=== PATIENT | male | born 1980 | race Caucasian/White ===

== ENCOUNTER 2016-12-14 21:59 | Emergency (ER) | payer OTHER ==
[2016-12-14 22:03] VITALS: BP 120/75
--- NOTE | 2016-12-14 23:37 | PHYS DOC ---
Past Medical History Past Medical History: No Pertinent History Past Surgical History: No Surgical History Alcohol Use: Rarely Drug Use: None Adult General Chief Complaint Chief Complaint: LOWER EXT PAIN HPI HPI Patient is a 36 year old male who presents with pain on top of the left thigh that began today. Patient states he was playing baseball, he states he hit the ball on started running and immediately felt like he had a muscle pull on his left thigh. Patient denies falling or any other injuries. Review of Systems Review of Systems Constitutional: Denies fever or chills [] Eyes: Denies change in visual acuity, redness, or eye pain [] : Denies dysuria or hematuria [] Musculoskeletal: Pain on top of the left thigh. Integument: Denies rash or skin lesions [] Neurologic: Denies headache, focal weakness or sensory changes [] Endocrine: Denies polyuria or polydipsia [] Current Medications Current Medications Current Medications Medications (Trade) Dose Ordered Sig/Cooper Start Time Stop Time Status Last Admin Dose Admin Naproxen (Naprosyn) 500 mg 1X STAT 12/14/16 23:37 12/14/16 23:38 UNV Prednisone (Prednisone) 60 mg 1X ONCE 12/14/16 23:45 12/14/16 23:46 UNV Allergies Allergies Allergies Coded Allergies Type Severity Reaction Last Updated Verified No Known Drug Allergies 03/24/14 No Physical Exam Physical Exam Constitutional: Well developed, well nourished, no acute distress, non-toxic appearance. [] Skin: Warm, dry, no erythema, no rash. [] Back: No tenderness, no CVA tenderness. [] Extremities: Left lower extremity with no obvious deformity. No ecchymosis. Tenderness on palpation of the left rectus femoris muscle. Full range of motion to the left lower extremity. Adequate flexion and extension of the left lower extremity. Adequate internal rotation and external rotation of the left lower extremity. +2 left pedal pulse. Cap refill less than 2 seconds the left lower extremity. Neurologic: Alert and oriented X 3, normal motor function, normal sensory function, no focal deficits noted. [] Psychologic: Affect normal, judgement normal, mood normal. [] Current Patient Data Vital Signs Vital Signs Date Time Temp Pulse Resp B/P Pulse Ox O2 Delivery O2 Flow Rate FiO2 12/14/16 22:03 98.2 88 18 98 Room Air 98.2 EKG EKG [] Radiology/Procedures Radiology/Procedures [] Course & Med Decision Making Course & Med Decision Making Pertinent Labs and Imaging studies reviewed. (See chart for details) Patient is in the ED with left femoris rectus muscle strain. Gavin wrap was provided to patient for the thigh. Ice elevation was encouraged. Discharged with naproxen and prednisone. Follow-up with orthopedic doctor in one week if pain continues. Dragon Disclaimer Dragon Disclaimer This electronic medical record was generated, in whole or in part, using a voice recognition dictation system. Departure Departure Impression: Primary Impression: Muscle strain of left lower leg Disposition: HOME, SELF-CARE Condition: STABLE Referrals: NO PCP (PCP) ALPESH LUNA MD follow-up with orthopedic doctor in one week if pain continues Patient Instructions: Muscle Strain Additional Instructions: You have musculoskeletal the left thigh. Follow-up with orthopedic doctor provided in one week. Come back to the ED if pain worsens. Ice and elevate the extremity. Take the prescribed medicines as ordered. Scripts Prednisone 50 Mg Tablet1 Tab PO DAILY #4 TAB Prov:TASHA RIOJAS APRN 12/14/16 Naproxen 500 Mg Tablet.dr1 Tab PO BID #60 TAB Ref 1 Prov:TASHA RIOJAS APRN 12/14/16 Problem Qualifiers Primary Impression: Muscle strain of left lower leg Encounter type: initial encounter Qualified Code: S86.912A - Strain of unspecified muscle(s) and tendon(s) at lower leg level, left leg, initial encounter TASHA RIOJAS APRN Dec 14, 2016 23:37
[2016-12-14] MEDS ORDERED: NAPR500T8 PO (23:40)
[2016-12-14] MEDS ORDERED: PRED50TA PO (23:40)
[2016-12-14] MEDS ORDERED: PREDNISONE 20 MG TABLET ONE (23:44)
[2016-12-14] MEDS ORDERED: NAPROXEN 500 MG TABLET ONE (23:44)
[2016-12-14] MEDS ORDERED: PREDNISONE 20 MG TABLET PO ONE (23:45)
[2016-12-14] MEDS ORDERED: NAPROXEN 500 MG TABLET PO ONE (23:45)
== END 2016-12-14 23:47 | disposition home or self-care (01) ==
LOC: ER 21:59
DX: S76.912A Strain of unspecified muscles, fascia and tendons at thigh level, left thigh, initial encounter (principal); W21.03XA Struck by baseball, initial encounter; Y93.64 Activity, baseball; Y92.89 Other specified places as the place of occurrence of the external cause; Y99.8 Other external cause status
CPT/HCPCS: 99283; J7512

== ENCOUNTER 2018-03-17 09:24 | Emergency (ER) | payer OTHER ==
[2018-03-17 09:56] LABS: ADD MAN DIFF? NO
[2018-03-17] MEDS: MORPHINE SULFATE 10 MG/ML VIAL. IV ×2 (09:56→12:21)
[2018-03-17] MEDS: IV NORMAL SALINE 1000ML BAG 1,000 ML IV (09:56)
[2018-03-17] MEDS: ONDANSETRON PF 4 MG/2 ML VIAL. IV ×2 (09:56→12:21)
[2018-03-17] MEDS: KETOROLAC 30 MG/ML INJ. IV (09:57)
[2018-03-17 09:58] LABS: BILIRUBIN,URINE NEGATIVE (NEG); CLARITY,URINE CLEAR; COLOR,URINE YELLOW; GLUCOSE,URINE NEGATIVE (NEG); NITRITE,URINE NEGATIVE (NEG); PROTEIN,URINE NEGATIVE (NEG-TRACE); UROBILINOGEN,URINE 0.2 mg/dL (0.2 mg/dL)
[2018-03-17 10:09] LABS: ANION GAP 5 (6-14); BLOOD UREA NITROGEN 9 mg/dL (8-26); BUN/CREATININE RATIO 8 (6-20); CARBON DIOXIDE 31 mmol/L (21-32); CHLORIDE 103 mmol/L (98-107); CREATININE 1.1 mg/dL (0.7-1.3); GFR 76.2; GLUCOSE 90 mg/dL (70-99); SODIUM 139 mmol/L (136-145)
[2018-03-17 10:16] LABS: ALK PHOS 96 U/L (46-116); ALT (SGPT) 21 U/L (16-63); AST (SGOT) 17 U/L (15-37); LIPASE 125 U/L (73-393); TOTAL BILIRUBIN 0.2 mg/dL (0.2-1.0); TOTAL PROTEIN 7.9 g/dL (6.4-8.2)
[2018-03-17 10:17] LABS: ETHANOL < 10 mg/dL (0-10)
[2018-03-17 10:17] LABS: BACTERIA,URINE 0 /HPF (0-FEW); RBC,URINE TNTC /HPF (0-2); SQUAMOUS EPITHELIAL CELL,UR FEW /LPF; WBC,URINE OCC /HPF (0-4)
[2018-03-17 10:25] LABS: BASO # 0.1 x10^3/uL (0.0-0.2); BASO % 0 % (0-3); EOS # 0.1 x10^3/uL (0.0-0.7); EOS % 1 % (0-3); HEMOGLOBIN 15.2 g/dL (13.0-17.5); LYMPH # 3.7 x10^3/uL (1.0-4.8); LYMPH % 25 % (24-48); MEAN CORPUSCULAR HEMOGLOBIN 30 pg (25-35); MEAN CORPUSCULAR HGB CONC 34 g/dL (31-37); MEAN CORPUSCULAR VOLUME 90 fL (79-100); MONO # 0.8 x10^3/uL (0.0-1.1); MONO % 5 % (0-9); NEUT % 68 % (31-73); PLATELET COUNT 266 x10^3/uL (140-400); RED CELL DISTRIBUTION WIDTH 14.3 % (11.5-14.5); WHITE BLOOD COUNT 14.6 x10^3/uL (4.0-11.0)
[2018-03-17] MEDS: TAMSULOSIN 0.4 MG CAP.ER.24H. PO (10:37)
[2018-03-17 11:59] LABS: AMPHETAMINE/METHAMPHETAMINE NEG (NEG); BARBITURATES NEG (NEG); BENZODIAZEPINES NEG (NEG); CANNABINOIDS POS (NEG); COCAINE NEG (NEG); ETHANOL, URINE NEG (NEG); METHADONE NEG (NEG); OPIATES POS (NEG); PHENCYCLIDINE NEG (NEG)
== END 2018-03-17 12:30 | disposition home or self-care (01) ==
LOC: ER 09:24
DX: N20.0 Calculus of kidney (principal); N12 Tubulo-interstitial nephritis, not specified as acute or chronic; R11.2 Nausea with vomiting, unspecified
CPT/HCPCS: 36415; 74176; 80053; 80307; 81001; 83690; 85025; 87086; 87491; 87591; 96361; 96365; 96375; 96376; 99285-25; G0480; J0690; J1885; J2270; J2405; J7030

== ENCOUNTER 2019-07-29 20:34 | Emergency (ER) | payer MEDICAID, OTHER ==
[2018-03-17 11:17] VITALS: BP 110/67
[~2019-07-29 20:34] MED LIST: CIPR500T94 PO; HYDR-2765 PO; NAPR500T8 PO; ONDA4TAB10 SL; PRED50TA PO; TAMS0.4C97 PO
== END 2019-07-29 20:49 | disposition left against medical advice (07) ==
LOC: ER 20:34
DX: R10.9 Unspecified abdominal pain (principal); Z53.21 Procedure and treatment not carried out due to patient leaving prior to being seen by health care provider